=== PATIENT | female | born 1985 | race Caucasian/White ===

== ENCOUNTER 2024-10-12 12:22 | Emergency (ER) | payer SELFPAY ==
[2024-10-12] MEDS ORDERED: Lidocaine 1% PF 5 ML VIAL ONE (13:58)
[2024-10-12] MEDS ORDERED: fentaNYL 50 mcg/mL 1 mL Vial ONE ×2 (13:58→14:58)
[2024-10-12] MEDS ORDERED: PROPOFOL 20 ML ONE (13:58)
[2024-10-12] MEDS ORDERED: Bupivacaine/Epinephrine 0.25% 30 ML VIAL ONE (13:59)
[2024-10-12] MEDS ORDERED: CEFAZOLIN 2 GM VIAL ONE (14:05)
[2024-10-12 14:22] LABS: BHCG - Serum Negative (NEGATIVE); Pregs Control Background? CLEAR/WHITE (CLR/WHITE); Pregs Control Bar Appear? YES (CONTROL BAR)
[2024-10-12] MEDS ORDERED: HYDROcodone/Acetaminophen 5/325 mg Tablet ONE (15:43)
== END 2024-10-12 13:18 | disposition admitted as inpatient to this hospital (09) ==
LOC: CSHERS 12:22
PROC: 0H9U0ZZ Drainage of Left Breast, Open Approach (ICD-10-PCS; principal; 2024-10-12)
DX: N61.1 Abscess of the breast and nipple (principal); E03.9 Hypothyroidism, unspecified; Z87.59 Personal history of other complications of pregnancy, childbirth and the puerperium; Z79.890 Hormone replacement therapy; Z79.1 Long term (current) use of non-steroidal anti-inflammatories (NSAID)
CPT/HCPCS: 36415; 84703; 88305; J2704; J3010